=== PATIENT | female | born 1980 | race Hispanic/Latino ===

== ENCOUNTER 2018-02-13 09:14 | Emergency (ER) | payer OTHER ==
[2018-02-13] MEDS ORDERED: ACETAMINOPHEN EXTRA STRENGTH 500 MG TABLET ONE (09:21)
[2018-02-13 10:01] LABS: HCG,QUAL RESULT NEGATIVE (NEGATIVE)
[2018-02-13 10:05] LABS: APPEARANCE,URINE TURBID (CLEAR); BILIRUBIN,URINE SMALL (NEGATIVE); COLOR,URINE RED (YELLOW); GLUCOSE, URINE (UA) NEGATIVE (NEGATIVE); KETONES,URINE 40 mg/dL (NEGATIVE); LEUKOCYTE ESTERASE ,URINE TRACE (NEGATIVE); NITRATE,URINE NEGATIVE (NEGATIVE); OCCULT BLOOD,URINE LARGE (NEGATIVE); PROTEIN,URINE 100 (NEGATIVE)
[2018-02-13 10:33] LABS: BACTERIA,URINE Rare /HPF (None Seen); RBC,URINE TNTC /HPF (0-1); SQUAMOUS EPITHELIAL CELL,UR Rare /HPF (0-2)
== END 2018-02-13 10:37 | disposition home or self-care (01) ==
LOC: EDH 09:14
DX: J03.90 Acute tonsillitis, unspecified (principal); H92.01 Otalgia, right ear
CPT/HCPCS: 81001; 81025; 87804; 87880